=== PATIENT | female | born 1965 | race Caucasian/White ===

== ENCOUNTER 2016-12-19 20:26 | Emergency (ER) | payer BC ==
[~2016-12-19] VITALS: Ht 152.4 cm; Wt 102.3 kg
[~2016-12-19 20:26] MED LIST: ACYCLOVIR800 MG PO; ALBUTEROL0.09 MG/A1 IH; ASPIR-LOW81 MG PO; ASPIR-LOX325 MG PO; ASPIRIN 32325 MG/TAB PO; COLACE 100100 MG/CAP PO; FERROUS SU325 MG/TAB PO; FOLIC ACID0.4 MG PO; FORTAMET500 MG PO; GLUCOPHAGE500 MG/TAB PO; IBUPROFEN600 MG PO; IRON325 M1 PO; LANTUS100 U/ML SC; LORTAB 5/500 501 TAB PO; LYSINE 500500 MG/TAB PO; NORCO 325 MG-7.1 TAB PO; PREDNISONE10 MG PO; PRIL40 PO; PRIMATENE0.22 MG/A1 IH; ROXICODONE 55 MG/TAB PO; SINGULAIR10 MG PO; VASOTEC5 MG PO; VICTOZA6 MG/ML SC; VITAMIN C BUFF500 MG PO; VITAMIN C1 TAB PO; VITAMINC1000TA PO; ZOCOR40 MG PO
[2016-12-19 20:44] VITALS: TEMP 98.8
[2016-12-19] MEDS ORDERED: NAPROSYN 2250 MG/TAB PO (21:26)
[2016-12-19] MEDS ORDERED: FLEXERIL 1010 MG/TAB PO (21:26)
[2016-12-19 22:01] VITALS: BP 149/84; PULSE 83
== END 2016-12-19 22:02 | disposition home or self-care (01) ==
LOC: COL.ER 20:26
DX: M25.511 Pain in right shoulder (principal); E11.9 Type 2 diabetes mellitus without complications; I10 Essential (primary) hypertension; Z79.4 Long term (current) use of insulin
CPT/HCPCS: J1885; J2360

== ENCOUNTER → 2019-06-27 | Outpatient (CLI) | payer BC ==
[~2019-06-27] MED LIST changes: +FLEXERIL 1010 MG/TAB PO; +NAPROSYN 2250 MG/TAB PO
== END ==
LOC: MC.RAD 08:11
DX: Z12.31 Encounter for screening mammogram for malignant neoplasm of breast (principal)

== ENCOUNTER → 2021-04-29 | Outpatient (CLI) | payer BC | LOC: MC.RAD 07:51 | DX: Z12.31 Encounter for screening mammogram for malignant neoplasm of breast (principal) ==

== ENCOUNTER → 2023-09-29 | Outpatient (CLI) | payer BC | LOC: MC.RAD 06:58 | DX: Z12.31 Encounter for screening mammogram for malignant neoplasm of breast (principal) ==

== ENCOUNTER → 2023-10-13 | Outpatient (CLI) | payer BC | LOC: MC.RAD 07:29 | DX: N63.12 Unspecified lump in the right breast, upper inner quadrant (principal) ==

== ENCOUNTER → 2023-10-18 | Outpatient (CLI) | payer BC | LOC: MC.RAD 06:56 | DX: R92.8 Other abnormal and inconclusive findings on diagnostic imaging of breast (principal) ==